=== PATIENT | female | born 1985 | race African-American/Black ===

== ENCOUNTER 2019-05-15 08:29 | Emergency (ER) | payer SELFPAY ==
[2019-05-15] MEDS ORDERED: FLU Vacc QS2019-20(6MOS+)/PF 60 MCG/0.5 ML SYRINGE IM ONE (09:15)
[2019-05-15] MEDS ORDERED: Ondansetron 4 MG Tab.DIS PO ONE (09:18)
--- NOTE | 2019-05-15 09:23 | EDM.PDOC ---
ED HPI GENERAL MEDICAL PROBLEM - General Chief Complaint: General Stated Complaint: LIGHT HEADED SENT FROM [place] Time Seen by Provider: 05/15/19 09:04 Source of Information: Reports: Patient, RN Notes Reviewed - History of Present Illness INITIAL COMMENTS - FREE TEXT/NARRATIVE: 33-year-old female with onset of watery diarrhea, abdominal cramps nausea 2 days ago. He had many episodes of watery diarrhea 2 days ago. Stopped that she still continues to feel nauseated. There has been no vomiting. No abdominal pain at this time. No voiding symptoms. She is not diabetic. - Related Data Allergies Allergy/AdvReac Type Severity Reaction Status Date / Time No Known Allergies Allergy Verified 05/15/19 09:01 Home Meds: Home Meds Ondansetron [Zofran ODT] 4 mg PO Q8HR PRN #7 tab.dis 05/15/19 [Rx] Past Medical History - Past Health History Medical/Surgical History: Denies Medical/Surgical History - Past Surgical History Female Surgical History: Reports: Section, D&C Social & Family History - Tobacco Use Smoking Status *Q: Never Smoker ED ROS GENERAL - Review of Systems Review Of Systems: See Below Constitutional: Denies: Fever, Chills HEENT: Denies: Sinus Problem, Throat Pain Respiratory: Denies: Shortness of Breath, Cough Cardiovascular: Denies: Chest Pain GI/Abdominal: Reports: Abdominal Pain (gone), Diarrhea (frequent watery 2 days ago, now gone), Nausea. Denies: Hematochezia, Melena Skin: Reports: No Symptoms Neurological: Reports: Dizziness ED EXAM, GENERAL - Physical Exam Exam: See Below General Appearance: Alert, No Apparent Distress Throat/Mouth: Normal Inspection, Normal Oropharynx Head: Atraumatic. No: Facial Swelling Neck: Supple, Full Range of Motion Respiratory/Chest: No Respiratory Distress, Lungs Clear, Normal Breath Sounds Cardiovascular: Regular Rate, Rhythm GI/Abdominal: Soft, Non-Tender. No: Guarding Back Exam: No: CVA Tenderness (L), CVA Tenderness (R) Extremities: Normal Inspection, Normal Range of Motion Neurological: Alert, Oriented, No Motor/Sensory Deficits Skin Exam: Warm, Dry, Normal Color Course - Vital Signs Last Recorded V/S: Last Vital Signs Temp 97.6 F 05/15/19 09:01 Pulse 82 05/15/19 09:01 Resp 16 11/03/19 09:01 BP 126/81 05/15/19 09:01 Pulse Ox 100 05/15/19 09:01 Orthostatic Blood Pressure [ 122/78 Standing] Orthostatic Blood Pressure [ 126/81 Supine] - Orders/Labs/Meds Orders: Active Orders 24 hr Category Date Time Status Influenza Vaccine Charge [RC] .DISCHARGE Care 05/15/19 09:08 Active Meds: Medications Discontinued Medications Generic Name Dose Route Start Last Admin Trade Name Carter PRN Reason Stop Dose Admin Influenza Virus Vaccine 1 each 05/15/19 09:08 Pharmacy To Dose - Influenza Vaccine IM 05/15/19 09:09 ONETIME ONE Influenza Virus Vaccine 60 mcg 05/15/19 09:15 05/15/19 09:23 Fluzone Quad [id number] Syringe IM 05/15/19 09:16 60 mcg .ONCE ONE Administration Ondansetron HCl 4 mg 05/15/19 09:18 05/15/19 09:23 Zofran Odt PO 05/15/19 09:19 4 mg ONETIME ONE Administration Departure - Departure Time of Disposition: :19 Disposition: Home, Self-Care 01 Condition: Fair Clinical Impression: Gastroenteritis Diarrhea Qualifiers: Diarrhea type: unspecified type Qualified Code(s): R19.7 - Diarrhea, unspecified - Discharge Information Prescriptions: Ondansetron [Zofran ODT] 4 mg PO Q8HR PRN #7 tab.dis PRN Reason: Nausea/Vomiting Referrals: PCP,None [Primary Care Provider] - Forms: ED Department Discharge Additional Instructions: Continue clear liquids until this evening, than very careful bland diet as tolerated. You've been given Zofran 4 mg while here in the ED. You may continue that every 8 hours if needed for further nausea or vomiting. Follow-up clinic if not getting back to normal within 2-3 days as expected. Return to ED as needed if symptoms worsening in any way. - My Orders Last 24 Hours: My Active Orders 05/15/19 09:08 Influenza Vaccine Charge [RC] .DISCHARGE - Assessment/Plan Last 24 Hours: My Active Orders 05/15/19 09:08 Influenza Vaccine Charge [RC] .DISCHARGE
== END 2019-05-15 10:52 | disposition home or self-care (01) ==
LOC: JD.ED 08:29
DX: K52.9 Noninfective gastroenteritis and colitis, unspecified (principal)
CPT/HCPCS: 90686; A9270; 90471; 99283